=== PATIENT | female | born 1955 | race Caucasian/White ===

== ENCOUNTER 2016-06-20 11:48 | Day surgery (SDC) | payer OTHER ==
[2016-06-20] MEDS ORDERED: PROPOFOL 200 MG/20 ML VIAL IVP ONE (11:54)
[2016-06-20] MEDS ORDERED: fentaNYL 100 MCG/2 ML INJ IVP ONE (11:54)
[2016-06-20] MEDS ORDERED: MIDAZOLAM 2 MG/2 ML VIAL IVP ONE (11:54)
[2016-06-20] MEDS ORDERED: NS 500 ML IV ONE (11:54)
--- NOTE | 2016-06-20 12:19 | CPEKG ---
Heart Rate: 97 RR Interval: 619 QRSD Interval: 96 QT Interval: 400 QTC Interval: 508 QRS [place]: 97 T Wave [place]: 9 EKG Severity - ABNORMAL ECG - EKG Impression: ATRIAL FIBRILLATION EKG Impression: RIGHT AXIS DEVIATION EKG Impression: BORDERLINE T ABNORMALITIES, ANTERIOR LEADS EKG Impression: BORDERLINE PROLONGED QT INTERVAL EKG Impression: ATRIAL FIB IS NEW IN COMPARISON TO PRIOR Electronically Signed By: Keith Darnell 21-Jun-2016 13:06:25
[2016-06-20 12:39] LABS: INR 1.34 (0.83-1.16); PROTIME(PATIENT) 16.6 SEC (12.0-15.0)
[2016-06-20 12:40] LABS: APTT 30.8 SEC (23.0-38.0)
[2016-06-20 12:41] LABS: ANION GAP 8 mEq/L (8-16); CALCIUM 8.6 mg/dL (8.5-10.4); CARBON DIOXIDE 32 mEq/l (22-31); CHLORIDE 100 mEq/L (97-110); CREATININE 0.7 mg/dL (0.6-1.0); GLOMERULAR FILTRATION RATE > 60; GLUCOSE 95 mg/dL (70-100); MAGNESIUM 1.6 mg/dL (1.6-2.3); POTASSIUM 3.9 mEq/L (3.5-5.2); SODIUM 140 mEq/L (134-144)
[2016-06-20] MEDS ORDERED: PROPOFOL 200 MG/20 ML VIAL ONE (13:21)
[2016-06-20] MEDS ORDERED: LIDOCAINE 2% 100 MG/5 ML SYR IVP ONE (13:21)
[2016-06-20] MEDS ORDERED: SUCCINYLCHOLINE CHLORIDE*ANESTHESIA ONLY*200 MG/10 ML SYR IVP ONE (13:21)
--- NOTE | 2016-06-20 13:30 | PDTEE1 ---
YUNIOR Cardioversion Procedure Procedure: Electrical Cardioversion Indications: Atrial Fibrillation Consent: Signed and in Chart Anticoagulation: Eliquis Procedural Details: No YUNIOR performed Synchronized cardioversion attempt #1: 100J Synchronized cardioversion attempt #2: 200J Results: Normal sinus rhythm Conclusions: Successful Cardioversion Patient Problems: Problems Problem Status Diagnosed Afib Acute
--- NOTE | 2016-06-20 15:25 | CPEKG ---
Heart Rate: 74 RR Interval: 811 P-R Interval: 232 QRSD Interval: 90 QT Interval: 424 QTC Interval: 471 P [place]: 73 QRS [place]: 92 T Wave [place]: 65 EKG Severity - ABNORMAL ECG - EKG Impression: SINUS RHYTHM EKG Impression: FIRST DEGREE AV BLOCK EKG Impression: RIGHT AXIS DEVIATION EKG Impression: BORDERLINE T ABNORMALITIES, ANT-LAT LEADS EKG Impression: SINUS RHYTHM HAS REPLACED ATRIAL FIB Electronically Signed By: Keith Darnell 21-Jun-2016 13:06:53
== END 2016-06-20 14:42 | disposition home or self-care (01) ==
LOC: FCATH 11:48
PROVIDERS: ATTEND Internal Medicine Interventional Cardiology
PROC: 5A2204Z Restoration of Cardiac Rhythm, Single (ICD-10-PCS; principal; 2016-06-20)
DX: I48.0 Paroxysmal atrial fibrillation (principal); I10 Essential (primary) hypertension; E78.5 Hyperlipidemia, unspecified; E78.00 Pure hypercholesterolemia, unspecified; E66.01 Morbid (severe) obesity due to excess calories; G47.33 Obstructive sleep apnea (adult) (pediatric)
CPT/HCPCS: J0330; J2001; J2704

== ENCOUNTER → 2017-03-13 | Outpatient (CLI) | payer OTHER | LOC: FIMAGING 13:36 | PROVIDERS: ATTEND Family Medicine | DX: Z12.31 Encounter for screening mammogram for malignant neoplasm of breast (principal); M51.36 Other intervertebral disc degeneration, lumbar region; M53.3 Sacrococcygeal disorders, not elsewhere classified; M17.0 Bilateral primary osteoarthritis of knee; Z74.09 Other reduced mobility | CPT/HCPCS: G0202 ==

== ENCOUNTER → 2018-07-30 | Outpatient (CLI) | payer OTHER | LOC: FIMAGING 10:41 ==